=== PATIENT | female | born 1995 | race African-American/Black ===

== ENCOUNTER 2022-01-16 07:55 | Inpatient (IN) | payer MEDICAID, OTHER ==
[~2022-01-16] VITALS: Ht 167.6 cm; Wt 79.4 kg
[2022-01-16] MEDS: DEXT 5%/LR + PITOCIN 20UNITS/L 1,000 ML IV SCH ×2 (08:18→09:23)
[2022-01-16] MEDS ORDERED: LIDOCAINE HCL 1% 30ML VIAL (10MG/ML) INFIL ONE (08:45)
[2022-01-16] MEDS ORDERED: IBUPROFEN 400MG TABLET PO PRN (09:00)
[2022-01-16] MEDS ORDERED: RHO(D) IMMUNE GLOBULIN 300 MCG/SYR IM PRN (09:00)
[2022-01-16] MEDS ORDERED: METHYLERGONOVINE MALEATE 0.2 MG/ML IM PRN (09:00)
[2022-01-16] MEDS ORDERED: DEXT 5%/LR + PITOCIN 20UNITS/L 1,000 ML IV SCH (09:00)
[2022-01-16] MEDS ORDERED: PRENATAL VIT/FE FUMARATE/FA TABLET PO SCH (09:00)
[2022-01-16] MEDS ORDERED: LANOLIN OINT 7GM TUBE TOP PRN (09:00)
[2022-01-16 09:12] LABS: CLARITY URINE CLEAR (CLEAR); COLOR URINE YELLOW (YELLOW); KETONES URINE TRACE (NEGATIVE); LEUKOCYTE ESTERASE URINE NEGATIVE (NEGATIVE); NITRITE URINE NEGATIVE (NEGATIVE); OCCULT BLOOD URINE NEGATIVE (NEGATIVE); PROTEIN URINE NEGATIVE (NEGATIVE); SPECIFIC GRAVITY URINE 1.019 (1.005-1.030)
[2022-01-16 09:15] LABS: BASOPHILS % 0.5 % (0.0-2.0); EOSINOPHILS % 0.7 % (0.0-5.0); HEMOGLOBIN. 10.2 g/dL (12.0-16.0); LYMPHOCYTES % 18.1 % (20.0-50.0); MEAN CORPUSCULAR HEMOGLOBIN 25.7 pg (28.0-32.0); MEAN CORPUSCULAR VOLUME 78.3 fL (81.0-99.0); MEAN PLATELET VOLUME 9.7 fl (7.4-10.4); MONOCYTES % 8.7 % (2.0-8.0); PLATELET 166 x1000/uL (130-400); RED BLOOD CELL COUNT 3.96 mill/uL (4.2-5.4); RED CELL DISTRIBUTION WIDTH 14.9 % (11.6-14.6)
[2022-01-16] MEDS ORDERED: LIDOCAINE HCL 1% 30ML VIAL (10MG/ML) INFIL SCH (09:15)
[2022-01-16] MEDS: IBUPROFEN 800MG TABLET PO PRN (09:20)
[2022-01-16 09:21] LABS: *BARBITURATES SCREEN URINE NEGATIVE (NEGATIVE)
[2022-01-16 09:22] LABS: *AMPHETAMINES SCREEN URINE NEGATIVE (NEGATIVE); *BENZODIAZEPINES SCREEN URINE NEGATIVE (NEGATIVE); *COCAINE SCREEN URINE NEGATIVE (NEGATIVE); METHADONE URINE SCREEN NEGATIVE (NEGATIVE); OPIATES URINE SCREEN NEGATIVE (NEGATIVE); PHENCYCLIDINE URINE SCREEN NEGATIVE (NEGATIVE)
[2022-01-16 09:23] LABS: CANNABINOID URINE SCREEN NEGATIVE (NEGATIVE)
[2022-01-16 09:36] LABS: INR 0.9; PARTIAL THROMBOPLASTIN TIME 26.2 sec (23.4-31.0); PROTHROMBIN TIME 10.2 sec (9.6-11.0)
[2022-01-16 10:00] VITALS: BP 162/92
[2022-01-16 11:00] VITALS: BP 153/91
[2022-01-16 12:56] LABS: HEPATITIS B SURFACE ANTIGEN NEGATIVE
[2022-01-16] MEDS ORDERED: ACETAMINOPHEN WITH CODEINE 300/30MG TABLET PO PRN (14:00)
[2022-01-16 14:57] VITALS: BP 137/80
[2022-01-16 16:00] VITALS: BP 145/89
[2022-01-16 20:00] VITALS: BP 121/61
[2022-01-17] MEDS: IBUPROFEN 800MG TABLET PO PRN (02:07)
[2022-01-17 04:30] VITALS: BP 127/78
[2022-01-17 08:40] LABS: BASOPHILS % 0.3 % (0.0-2.0); EOSINOPHILS % 0.8 % (0.0-5.0); HEMATOCRIT. 30.4 % (36.0-48.0); LYMPHOCYTES % 24.5 % (20.0-50.0); MEAN CORPUSCULAR VOLUME 78.8 fL (81.0-99.0); MEAN PLATELET VOLUME 9.8 fl (7.4-10.4); MONOCYTES % 8.6 % (2.0-8.0); NEUTROPHILS % 65.8 % (40.0-76.0); PLATELET 171 x1000/uL (130-400); RED BLOOD CELL COUNT 3.86 mill/uL (4.2-5.4); RED CELL DISTRIBUTION WIDTH 15.1 % (11.6-14.6)
[2022-01-17 10:02] VITALS: BP 130/70
[2022-01-19 08:10] LABS: LIDOCAINE 0.3 ug/mL (1.5-5.0)
== END 2022-01-17 14:30 | disposition home or self-care (01) | DRG 560 ==
LOC: EDBD 07:55 → 8 EST LDRP 07:55 → OBSVTOIN 07:56 → 8EST 10:24
PROVIDERS: ADMIT Obstetrics & Gynecology; ATTEND Obstetrics & Gynecology
PROC: 10E0XZZ Delivery of Products of Conception, External Approach (ICD-10-PCS; principal; 2022-01-16)
PROC: 0KQM0ZZ Repair Perineum Muscle, Open Approach (ICD-10-PCS; 2022-01-16)
DX: O48.0 Post-term pregnancy (principal); Z37.0 Single live birth; O70.1 Second degree perineal laceration during delivery; Z20.822 Contact with and (suspected) exposure to COVID-19; Z3A.40 40 weeks gestation of pregnancy
CPT/HCPCS: 36415; 80176; 80305; 81003; 85025; 86592; 86703; 86762; 86850; 86900; 87340; 87426; G0378; J2590; J3490